=== PATIENT | female | born 1990 | race Caucasian/White ===

== ENCOUNTER 2016-09-10 03:37 | Emergency (ER) | payer OTHER ==
[~2016-09-10] VITALS: Ht 167.6 cm; Wt 59.1 kg
[2016-09-10] MEDS ORDERED: CLARITIN-D 21 TABLET PO (03:52)
[2016-09-10] MEDS ORDERED: AMOXICILLIN500 M1 PO (03:52)
[2016-09-10 03:56] VITALS: BP 114/68
== END 2016-09-10 04:01 | disposition home or self-care (01) ==
LOC: EME 03:37 → EXP 03:37
DX: H66.91 Otitis media, unspecified, right ear (principal); J06.9 Acute upper respiratory infection, unspecified
CPT/HCPCS: 99281; 99284